=== PATIENT | female | born 1960 | race Caucasian/White ===

== ENCOUNTER 2020-04-17 11:02 | Day surgery (SDC) | payer MEDICARE ==
[~2020-04-17] VITALS: Ht 170.2 cm; Wt 150.0 kg
[2020-04-17] MEDS ORDERED: SPIR50TA4 PO (12:05)
[2020-04-17] MEDS ORDERED: METO-95 PO (12:05)
[2020-04-17] MEDS ORDERED: PRAV40TA2 PO (12:05)
[2020-04-17] MEDS ORDERED: WARF-36 PO (12:05)
[2020-04-17] MEDS ORDERED: TRIA1CAP3 PO (12:05)
[2020-04-17] MEDS ORDERED: ACET-1600 PO (12:05)
[2020-04-17] MEDS ORDERED: DILT360C26 PO (12:05)
[2020-04-17] MEDS ORDERED: ALBU8.5H8 INH (12:05)
[2020-04-17] MEDS ORDERED: DIGO250T3 PO (12:05)
[2020-04-17] MEDS ORDERED: POLY119P PO (12:05)
[2020-04-17 12:06] VITALS: BP 129/89
[2020-04-17] MEDS ORDERED: PROPOFOL 10 MG/ML, 20ML ONE (12:25)
[2020-04-17] MEDS ORDERED: SODIUM CHLORIDE FLUSH 10ML SYR IVF SCH (21:00)
== END 2020-04-17 14:15 | disposition home or self-care (01) ==
LOC: CACL 11:02
PROVIDERS: ATTEND Internal Medicine Cardiovascular Disease
DX: I48.11 Longstanding persistent atrial fibrillation (principal); I10 Essential (primary) hypertension; G47.33 Obstructive sleep apnea (adult) (pediatric); E66.01 Morbid (severe) obesity due to excess calories; Z79.01 Long term (current) use of anticoagulants; Z79.899 Other long term (current) drug therapy; Z88.5 Allergy status to narcotic agent; Z79.82 Long term (current) use of aspirin; Z68.43 Body mass index [BMI] 50.0-59.9, adult; Z98.890 Other specified postprocedural states
CPT/HCPCS: 92960; 93005; J2704

== ENCOUNTER → 2021-01-27 | Outpatient (CLI) | payer MEDICARE ==
[~2021-01-27] MED LIST: ACET-1600 PO; ALBU8.5H8 INH; DIGO250T3 PO; DILT360C26 PO; METO-95 PO; POLY119P PO; PRAV40TA2 PO; SPIR50TA4 PO; TRIA1CAP3 PO; WARF-36 PO
== END | disposition home or self-care (01) ==
LOC: CVU 15:18
PROVIDERS: ATTEND Internal Medicine Cardiovascular Disease
DX: I08.3 Combined rheumatic disorders of mitral, aortic and tricuspid valves (principal); I48.0 Paroxysmal atrial fibrillation; E78.2 Mixed hyperlipidemia
CPT/HCPCS: 93306

== ENCOUNTER → 2021-04-15 | Outpatient (CLI) | payer MEDICARE | END | disposition home or self-care (01) | LOC: CFH 10:19 | PROVIDERS: ATTEND Internal Medicine Cardiovascular Disease | DX: I25.10 Atherosclerotic heart disease of native coronary artery without angina pectoris (principal); E78.2 Mixed hyperlipidemia | CPT/HCPCS: 75571 ==